=== PATIENT | male | born 1985 | race Caucasian/White ===

== ENCOUNTER 2023-01-04 12:55 | Emergency (ER) | payer OTHER ==
[~2023-01-04] VITALS: Ht 172.7 cm; Wt 113.4 kg
[2023-01-04 13:04] VITALS: BP 117/82
--- NOTE | 2023-01-04 13:45 | NUR ---
c/o sob 98% on room air, "something bothers in my throat"
[2023-01-04] MEDS ORDERED: AMOX500C2 PO (13:51)
[2023-01-04] MEDS ORDERED: AMOXICILLIN TRIHYDRATE 250 MG CAPSULE ONE (13:56)
[2023-01-04] MEDS ORDERED: IBUPROFEN 600 MG TABLET ONE (13:56)
[2023-01-04] MEDS ORDERED: IBUPROFEN 600 MG TABLET PO ONE (14:00)
[2023-01-04] MEDS ORDERED: AMOXICILLIN TRIHYDRATE 500 MG CAPSULE PO ONE (14:00)
--- NOTE | 2023-01-04 14:02 | NUR ---
Patient discharged to home in stable condition. Written and verbal after care instructions given. Patient verbalizes understanding of instruction.
== END 2023-01-04 14:01 | disposition home or self-care (01) ==
LOC: ER 13:01
DX: J02.0 Streptococcal pharyngitis (principal)